=== PATIENT | female | born 1980 | race Caucasian/White ===

== ENCOUNTER 2019-04-09 11:10 | Emergency (ER) | payer OTHER ==
--- NOTE | 2019-04-09 11:54 | EDM.PDOC ---
ED HPI GENERAL MEDICAL PROBLEM - General Chief Complaint: Fever Stated Complaint: NECK PAIN, HEADACHE, FEVERS Time Seen by Provider: 04/09/19 11:42 Source of Information: Reports: Patient History Limitations: Reports: No Limitations - History of Present Illness INITIAL COMMENTS - FREE TEXT/NARRATIVE: Onset: gradual Sx: "just doesn't feel right" OTC: tylenol On Cefdinir for chronic sinus itis; left OM Has chronic diarrhea States she is otherwise healthy. 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: , Spontaneous Psychiatric History: Reports: Anxiety, Depression - Infectious Disease History Infectious Disease History: Reports: Chicken Pox Social & Family History - Tobacco Use Smoking Status *Q: Never Smoker Second Hand Smoke Exposure: No - Caffeine Use Caffeine Use: Reports: Soda - Alcohol Use Days Per Week of Alcohol Use: 0 - Recreational Drug Use Recreational Drug Use: No ED ROS GENERAL - Review of Systems Review Of Systems: See Below Constitutional: Reports: Fever, Chills, Weakness, Night Sweats HEENT: Reports: Ear Pain Respiratory: Reports: No Symptoms Cardiovascular: Reports: No Symptoms GI/Abdominal: Reports: No Symptoms : Reports: No Symptoms Musculoskeletal: Reports: No Symptoms Skin: Reports: No Symptoms Neurological: Reports: No Symptoms Psychiatric: Reports: No Symptoms ED EXAM, GENERAL - Physical Exam Exam: See Below Exam Limited By: No Limitations General Appearance: Alert, WD/WN, No Apparent Distress Eye Exam: Bilateral Eye: EOMI, PERRL Ear Exam: Bilateral Ear: Auricle Normal, Canal Normal, TM normal Nose: Normal Inspection Throat/Mouth: Normal Inspection, Normal Lips, Normal Teeth, Normal Gums, Normal Oropharynx, Normal Voice, No Airway Compromise Head: Atraumatic, Normocephalic Neck: Normal Inspection, Supple, Full Range of Motion Respiratory/Chest: No Respiratory Distress, Lungs Clear, Normal Breath Sounds Cardiovascular: Regular Rate, Rhythm GI/Abdominal: Normal Bowel Sounds, Soft, Non-Tender Back Exam: Full Range of Motion Extremities: Normal Inspection, Normal Range of Motion, Non-Tender Neurological: Alert, Oriented, CN II-XII Intact Psychiatric: Normal Affect, Normal Mood Skin Exam: Warm, Dry, Intact, Normal Color, No Rash Course - Vital Signs Last Recorded V/S: Last Vital Signs Temp 97.4 F 04/09/19 11:31 Pulse 102 H 04/09/19 11:31 Resp 18 04/09/19 11:31 BP 150/97 H 04/09/19 11:31 Pulse Ox 97 04/09/19 11:31 - Orders/Labs/Meds Orders: Active Orders 24 hr Category Date Time Status Peripheral IV Care [RC] . DIRECTED Care 04/09/19 12:57 Active Peripheral IV Insertion Adult [OM.PC] Stat Oth 04/09/19 12:57 Ordered Labs: Laboratory Tests 04/09/19 04/09/19 04/09/19 Range/Units 11:50 12:01 12:01 WBC 5.6 (4.5-11.0) K/uL RBC 4.98 (3.30-5.50) M/uL Hgb 13.2 (12.0-15.0) g/dL Hct 40.1 (36.0-48.0) % MCV 81 (80-98) fL MCH 27 (27-31) pg MCHC 33 (32-36) % Plt Count 244 (150-400) K/uL Neut % (Auto) 64 (36-66) % Lymph % (Auto) 22 L (24-44) % [place] % (Auto) 12 H (2-6) % Eos % (Auto) 3 (2-4) % Baso % (Auto) 0 (0-1) % Sodium 137 L (140-148) mmol/L Potassium 4.1 (3.6-5.2) mmol/L Chloride 103 (100-108) mmol/L Carbon Dioxide 25 (21-32) mmol/L Anion Gap 13.1 (5.0-14.0) mmol/L BUN 7 (7-18) mg/dL Creatinine 0.9 (0.6-1.0) mg/dL Est Cr Clr Drug Dosing 70.11 mL/min Estimated GFR (MDRD) > 60 (>60) Glucose 108 H (74-106) mg/dL Calcium 8.6 (8.5-10.1) mg/dL Total Bilirubin 0.4 (0.2-1.0) mg/dL AST 28 (15-37) U/L ALT 55 (12-78) U/L Alkaline Phosphatase 93 (46-116) U/L Total Protein 7.2 (6.4-8.2) g/dL Albumin 3.0 L (3.4-5.0) g/dL Globulin 4.2 H (2.3-3.5) g/dL Albumin/Globulin Ratio 0.7 L (1.2-2.2) Urine Color Yellow Urine Appearance Slightly cloudy Urine pH 5.0 (4.5-8.0) Ur Specific [place] 1.020 (1.008-1.030) Urine Protein Negative (NEGATIVE) mg/dL Urine Glucose (UA) Normal (NEGATIVE) mg/dL Urine Ketones Negative (NEGATIVE) mg/dL Urine Occult Blood Moderate (NEGATIVE) Urine Nitrite Negative (NEGATIVE) Urine Bilirubin Negative (NEGATIVE) Urine Urobilinogen Normal (NORMAL) mg/dL Ur Leukocyte Esterase Negative (NEGATIVE) Urine RBC 5-10 H (0-5) Urine WBC Not seen (0-5) Ur Epithelial Cells Moderate Amorphous Sediment Few Urine Bacteria Not seen Urine Mucus Rare Urine HCG, Qual 04/09/19 Range/Units 12:26 WBC (4.5-11.0) K/uL RBC (3.30-5.50) M/uL Hgb (12.0-15.0) g/dL Hct (36.0-48.0) % MCV (80-98) fL MCH (27-31) pg MCHC (32-36) % Plt Count (150-400) K/uL Neut % (Auto) (36-66) % Lymph % (Auto) (24-44) % [place] % (Auto) (2-6) % Eos % (Auto) (2-4) % Baso % (Auto) (0-1) % Sodium (140-148) mmol/L Potassium (3.6-5.2) mmol/L Chloride (100-108) mmol/L Carbon Dioxide (21-32) mmol/L Anion Gap (5.0-14.0) mmol/L BUN (7-18) mg/dL Creatinine (0.6-1.0) mg/dL Est Cr Clr Drug Dosing mL/min Estimated GFR (MDRD) (>60) Glucose (74-106) mg/dL Calcium (8.5-10.1) mg/dL Total Bilirubin (0.2-1.0) mg/dL AST (15-37) U/L ALT (12-78) U/L Alkaline Phosphatase (46-116) U/L Total Protein (6.4-8.2) g/dL Albumin (3.4-5.0) g/dL Globulin (2.3-3.5) g/dL Albumin/Globulin Ratio (1.2-2.2) Urine Color Urine Appearance Urine pH (4.5-8.0) Ur Specific [place] (1.008-1.030) Urine Protein (NEGATIVE) mg/dL Urine Glucose (UA) (NEGATIVE) mg/dL Urine Ketones (NEGATIVE) mg/dL Urine Occult Blood (NEGATIVE) Urine Nitrite (NEGATIVE) Urine Bilirubin (NEGATIVE) Urine Urobilinogen (NORMAL) mg/dL Ur Leukocyte Esterase (NEGATIVE) Urine RBC (0-5) Urine WBC (0-5) Ur Epithelial Cells Amorphous Sediment Urine Bacteria Urine Mucus Urine HCG, Qual Negative Meds: Medications Discontinued Medications Generic Name Dose Route Start Last Admin Trade Name Freq PRN Reason Stop Dose Admin Sodium Chloride 1,000 mls @ 1,000 mls/hr 04/09/19 13:00 04/09/19 13:07 Normal Saline IV 1,000 mls/hr ASDIRECTED ESME Administration Morphine Sulfate 4 mg 04/09/19 12:58 04/09/19 13:11 Morphine IVPUSH 04/09/19 12:59 4 mg ONETIME ONE Administration Sodium Chloride 10 ml 04/09/19 12:57 Saline Flush FLUSH ASDIRECTED PRN Keep Vein Open - Re-Assessments/Exams Free Text/Narrative Re-Assessment/Exam: 04/09/19 12:46 awaiting urine /ua; sodium is a little low, otherwise labs are stable. Reviewed with patient. 04/09/19 13:00 she states she has neck pain and headache; along with fever; she has been out in the sun quite a bit; Will give her NS and some pain medicine. Will continue to evaluate. Free Text/Narrative Re-Assessment/Exam: 04/09/19 14:04 1 L of NS given; Morphine for pain; Home, rest, hydrate. Tylenol/motrin for headache. Follow up with primary care if not improving. If symptoms worsen, return to ER for further evaluation. Departure - Departure Time of Disposition: 13:00 Disposition: Home, Self-Care 01 Condition: Good Clinical Impression: Fever Qualifiers: Fever type: unspecified Qualified Code(s): R50.9 - Fever, unspecified - Discharge Information *PRESCRIPTION DRUG MONITORING PROGRAM REVIEWED*: Not Applicable *COPY OF PRESCRIPTION DRUG MONITORING REPORT IN PATIENT LIZETTE: Not Applicable Instructions: Fever, Adult Referrals: PCP,None [Primary Care Provider] - Forms: ED Department Discharge Additional Instructions: Home, rest, hydrate. Tylenol/motrin for headache. Follow up with primary care if not improving. If symptoms worsen, return to ER for further evaluation. - Problem List & Annotations (1) Fever SNOMED Code(s): 514575804 Code(s): R50.9 - FEVER, UNSPECIFIED Status: Acute Priority: Low Qualifiers: Fever type: unspecified Qualified Code(s): R50.9 - Fever, unspecified - Problem List Review Problem List Initiated/Reviewed/Updated: Yes - My Orders Last 24 Hours: My Active Orders 04/09/19 12:57 Peripheral IV Care [RC] . DIRECTED Peripheral IV Insertion Adult [OM.PC] Stat - Assessment/Plan Last 24 Hours: My Active Orders 04/09/19 12:57 Peripheral IV Care [RC] . DIRECTED Peripheral IV Insertion Adult [OM.PC] Stat
[2019-04-09] MEDS ORDERED: Sodium Chloride 0.9% 10 ML Syringe FLUSH PRN (12:57)
[2019-04-09] MEDS ORDERED: Morphine 4 MG/ML Syringe IVPUSH ONE (12:58)
[2019-04-09] MEDS ORDERED: Sodium Chloride 0.9% 1,000 ML IV SCH (13:00)
== END 2019-04-09 14:15 | disposition home or self-care (01) ==
LOC: JP.ED 11:10
DX: R50.9 Fever, unspecified (principal); M54.2 Cervicalgia; R51 Headache; F41.9 Anxiety disorder, unspecified; F32.9 Major depressive disorder, single episode, unspecified; Z79.899 Other long term (current) drug therapy
CPT/HCPCS: 36415; 80053; 81001; 81025; 85025; 96361; 96374; 99283; J2270; J7030

== ENCOUNTER 2019-04-11 09:40 | Emergency (ER) | payer OTHER ==
[2019-04-11] MEDS ORDERED: Cyclobenzaprine 10 MG Tab PO ONE (10:09)
[2019-04-11] MEDS ORDERED: Ketorolac 30 MG/ML SDV IVPUSH ONE (10:09)
--- NOTE | 2019-04-11 10:13 | EDM.PDOC ---
ED HPI GENERAL MEDICAL PROBLEM - General Chief Complaint: Headache Stated Complaint: NECK PAIN, FEVER HEADACHE WAS HERE MON Time Seen by Provider: 04/11/19 09:59 Source of Information: Reports: Patient, Family, Old Records, RN Notes Reviewed History Limitations: Reports: No Limitations - History of Present Illness INITIAL COMMENTS - FREE TEXT/NARRATIVE: 38-year-old female presents emergency department today complaint of headache and fever as well as neck pain, she states she's had the neck pain for about a week went in combination with the headache the fever started 5 days prior was in the emergency department on Tuesday for evaluation at that time lab work was fairly unremarkable had some improvement with fluids and treatment elected to do watchful waiting at that time. 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 She is up here visiting. 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: , Spontaneous Psychiatric History: Reports: Anxiety, Depression - Infectious Disease History Infectious Disease History: Reports: Chicken Pox Social & Family History - Tobacco Use Smoking Status *Q: Never Smoker - Caffeine Use Caffeine Use: Reports: Soda - Recreational Drug Use Recreational Drug Use: No ED ROS GENERAL - Review of Systems Review Of Systems: See Below Constitutional: Reports: Fever, Chills, Other (Breanna's) HEENT: Reports: Sinus Problem Respiratory: Reports: No Symptoms Cardiovascular: Reports: No Symptoms GI/Abdominal: Reports: No Symptoms Musculoskeletal: Reports: Neck Pain Skin: Reports: No Symptoms Neurological: Reports: Headache - Physical Exam Exam: See Below Exam Limited By: No Limitations General Appearance: Alert, Mild Distress Eye Exam: Bilateral Eye: EOMI, Normal Fundi, Normal Inspection, PERRL Throat/Mouth: No Airway Compromise Head Exam: Atraumatic, Normocephalic Neck: Normal Inspection, Supple, Limited Range of Motion, Tender Lateral Respiratory/Chest: No Respiratory Distress, Lungs Clear, Normal Breath Sounds, No Accessory Muscle Use, Chest Non-Tender Cardiovascular: Regular Rate, Rhythm, No Murmur GI/Abdominal: Soft, Non-Tender Extremities: Normal Inspection, Non-Tender Course - Vital Signs Last Recorded V/S: Last Vital Signs Temp 95.8 F 04/11/19 11:11 Pulse 86 04/11/19 12:15 Resp 16 04/11/19 11:11 BP 96/68 04/11/19 12:15 Pulse Ox 94 L 04/11/19 12:15 - Orders/Labs/Meds Orders: Active Orders 24 hr Category Date Time Status Vital Signs [RC] Q1H Care 04/11/19 10:07 Active CRYPTOCOCCUS ANTIBODIES, QUANT Routine Lab 04/11/19 12:53 Received CULTURE BLOOD [BC] Urgent Lab 04/11/19 10:10 Received CULTURE BLOOD [BC] Urgent Lab 04/11/19 10:15 Received CULTURE CSF + SMEAR [RM] Routine Lab 04/11/19 12:53 Results Sodium Chloride 0.9% [Normal Saline] 1,000 ml Med 04/11/19 11:00 Active IV ASDIRECTED Blood Culture x2 Reflex Set [OM.PC] Urgent Oth 04/11/19 10:07 Ordered Medication Orders Sodium Chloride (Normal Saline) 1,000 mls @ 500 mls/hr IV ASDIRECTED ESME Last Admin: 04/11/19 11:11 Dose: 500 mls/hr Labs: Laboratory Tests 04/11/19 04/11/19 04/11/19 Range/Units 10:10 10:10 10:10 WBC 10.2 (4.5-11.0) K/uL RBC 4.65 (3.30-5.50) M/uL Hgb 12.6 (12.0-15.0) g/dL Hct 37.4 (36.0-48.0) % MCV 80 (80-98) fL MCH 27 (27-31) pg MCHC 34 (32-36) % Plt Count 203 (150-400) K/uL Neut % (Auto) 96 H (36-66) % Lymph % (Auto) 1 L (24-44) % [place] % (Auto) 2 (2-6) % Eos % (Auto) 1 L (2-4) % Baso % (Auto) 0 (0-1) % Sodium 138 L (140-148) mmol/L Potassium 2.8 L* (3.6-5.2) mmol/L Chloride 105 (100-108) mmol/L Carbon Dioxide 20 L (21-32) mmol/L Anion Gap 15.8 H (5.0-14.0) mmol/L BUN 12 D (7-18) mg/dL Creatinine 1.0 (0.6-1.0) mg/dL Est Cr Clr Drug Dosing 63.10 mL/min Estimated GFR (MDRD) > 60 (>60) Glucose 126 H (74-106) mg/dL Lactic Acid 1.7 (0.4-2.0) mmol/L Calcium 8.2 L (8.5-10.1) mg/dL Total Bilirubin 0.5 (0.2-1.0) mg/dL AST 22 (15-37) U/L ALT 46 (12-78) U/L Alkaline Phosphatase 90 (46-116) U/L C-Reactive Protein 3.89 H (0.0-0.3) mg/dL Total Protein 6.7 (6.4-8.2) g/dL Albumin 2.9 L (3.4-5.0) g/dL Globulin 3.8 H (2.3-3.5) g/dL Albumin/Globulin Ratio 0.8 L (1.2-2.2) Procalcitonin ng/mL CSF Tube Number CSF Volume mls CSF Appearance (CLEAR) CSF Color (COLORLESS) CSF WBC (0-5) /ul CSF RBC (0-0) /ul CSF Mononuclear Cells (54-100) % CSF Polymorphonuclear (0-7) % CSF Glucose (40-70) mg/dL CSF Total Protein (15-45) mg/dL 04/11/19 04/11/19 04/11/19 Range/Units 10:10 12:53 12:53 WBC (4.5-11.0) K/uL RBC (3.30-5.50) M/uL Hgb (12.0-15.0) g/dL Hct (36.0-48.0) % MCV (80-98) fL MCH (27-31) pg MCHC (32-36) % Plt Count (150-400) K/uL Neut % (Auto) (36-66) % Lymph % (Auto) (24-44) % [place] % (Auto) (2-6) % Eos % (Auto) (2-4) % Baso % (Auto) (0-1) % Sodium (140-148) mmol/L Potassium (3.6-5.2) mmol/L Chloride (100-108) mmol/L Carbon Dioxide (21-32) mmol/L Anion Gap (5.0-14.0) mmol/L BUN (7-18) mg/dL Creatinine (0.6-1.0) mg/dL Est Cr Clr Drug Dosing mL/min Estimated GFR (MDRD) (>60) Glucose (74-106) mg/dL Lactic Acid (0.4-2.0) mmol/L Calcium (8.5-10.1) mg/dL Total Bilirubin (0.2-1.0) mg/dL AST (15-37) U/L ALT (12-78) U/L Alkaline Phosphatase (46-116) U/L C-Reactive Protein (0.0-0.3) mg/dL Total Protein (6.4-8.2) g/dL Albumin (3.4-5.0) g/dL Globulin (2.3-3.5) g/dL Albumin/Globulin Ratio (1.2-2.2) Procalcitonin 5.97 H* ng/mL CSF Tube Number 3 CSF Volume 1 mls CSF Appearance Clear (CLEAR) CSF Color Colorless (COLORLESS) CSF WBC 4 (0-5) /ul CSF RBC 248 H (0-0) /ul CSF Mononuclear Cells 75 (54-100) % CSF Polymorphonuclear 25 H (0-7) % CSF Glucose 69 (40-70) mg/dL CSF Total Protein (15-45) mg/dL 04/11/19 Range/Units 13:06 WBC (4.5-11.0) K/uL RBC (3.30-5.50) M/uL Hgb (12.0-15.0) g/dL Hct (36.0-48.0) % MCV (80-98) fL MCH (27-31) pg MCHC (32-36) % Plt Count (150-400) K/uL Neut % (Auto) (36-66) % Lymph % (Auto) (24-44) % [place] % (Auto) (2-6) % Eos % (Auto) (2-4) % Baso % (Auto) (0-1) % Sodium (140-148) mmol/L Potassium (3.6-5.2) mmol/L Chloride (100-108) mmol/L Carbon Dioxide (21-32) mmol/L Anion Gap (5.0-14.0) mmol/L BUN (7-18) mg/dL Creatinine (0.6-1.0) mg/dL Est Cr Clr Drug Dosing mL/min Estimated GFR (MDRD) (>60) Glucose (74-106) mg/dL Lactic Acid (0.4-2.0) mmol/L Calcium (8.5-10.1) mg/dL Total Bilirubin (0.2-1.0) mg/dL AST (15-37) U/L ALT (12-78) U/L Alkaline Phosphatase (46-116) U/L C-Reactive Protein (0.0-0.3) mg/dL Total Protein (6.4-8.2) g/dL Albumin (3.4-5.0) g/dL Globulin (2.3-3.5) g/dL Albumin/Globulin Ratio (1.2-2.2) Procalcitonin ng/mL CSF Tube Number CSF Volume mls CSF Appearance (CLEAR) CSF Color (COLORLESS) CSF WBC (0-5) /ul CSF RBC (0-0) /ul CSF Mononuclear Cells (54-100) % CSF Polymorphonuclear (0-7) % CSF Glucose (40-70) mg/dL CSF Total Protein 22.7 (15-45) mg/dL Meds: Medications Generic Name Dose Route Start Last Admin Trade Name Freq PRN Reason Stop Dose Admin Sodium Chloride 1,000 mls @ 500 mls/hr 04/11/19 11:00 04/11/19 11:11 Normal Saline IV 500 mls/hr ASDIRECTED ESME Administration Discontinued Medications Generic Name Dose Route Start Last Admin Trade Name Freq PRN Reason Stop Dose Admin Cyclobenzaprine HCl 10 mg 04/11/19 10:09 04/11/19 10:19 Flexeril PO 04/11/19 10:10 10 mg ONETIME ONE Administration Fentanyl 100 mcg 04/11/19 11:29 04/11/19 11:40 Sublimaze IM 04/11/19 11:30 100 mcg ONETIME ONE Administration Hydromorphone HCl 1 mg 04/11/19 14:40 Dilaudid IVPUSH 04/11/19 14:41 ONETIME ONE Potassium Chloride 20 meq/ 112 mls @ 56 mls/hr 04/11/19 11:00 04/11/19 11:11 Lidocaine HCl 2 ml/ Sodium IV 04/11/19 12:59 56 mls/hr Chloride ONETIME ONE Administration Ketorolac Tromethamine 30 mg 04/11/19 10:09 04/11/19 10:19 Toradol IVPUSH 04/11/19 10:10 30 mg ONETIME ONE Administration Potassium Chloride 40 meq 04/11/19 10:51 04/11/19 11:11 Klor-Con M20 PO 04/11/19 10:52 40 meq ONETIME ONE Administration Departure - Departure Time of Disposition: 14:50 Disposition: Home, Self-Care 01 Condition: Fair Clinical Impression: Head ache Qualifiers: Headache type: unspecified Headache chronicity pattern: acute headache - Discharge Information Referrals: PCP,None [Primary Care Provider] - Forms: ED Department Discharge Additional Instructions: Continue to use your ibuprofen or Tylenol for baseline pain control use the hydrocodone for breakthrough pain, please follow-up with your primary care provider upon return call return to the emergency department worsening of symptoms. - My Orders Last 24 Hours: My Active Orders 04/11/19 10:07 Vital Signs [RC] Q1H Blood Culture x2 Reflex Set [OM.PC] Urgent 04/11/19 10:10 CULTURE BLOOD [BC] Urgent 04/11/19 10:15 CULTURE BLOOD [BC] Urgent 04/11/19 11:00 Sodium Chloride 0.9% [Normal Saline] 1,000 ml IV ASDIRECTED 04/11/19 12:53 CRYPTOCOCCUS ANTIBODIES, QUANT Routine CULTURE CSF + SMEAR [] Routine - Assessment/Plan Last 24 Hours: My Active Orders 04/11/19 10:07 Vital Signs [RC] Q1H Blood Culture x2 Reflex Set [OM.PC] Urgent 04/11/19 10:10 CULTURE BLOOD [BC] Urgent 04/11/19 10:15 CULTURE BLOOD [BC] Urgent 04/11/19 11:00 Sodium Chloride 0.9% [Normal Saline] 1,000 ml IV ASDIRECTED 04/11/19 12:53 CRYPTOCOCCUS ANTIBODIES, QUANT Routine CULTURE CSF + SMEAR [RM] Routine Plan: Assessment Acuity = acute Site and laterality = headache, neck pain and fever Etiology = unclear etiology Manifestations = none Location of injury = Home Lab values = CBC unremarkable potassium low at 2.8 consistent hypokalemia lactic acid normal at 1.7 and CRP slightly elevated 3.89 pro calcitonin is also elevated of unclear significance, CT scan of the head was negative for any acute process cerebral spinal fluid shows normal glucose normal protein however the tube labeled #3 has 250 rbc's and it and the tube labeled number to only has approximately 25 RBCs suspicious that this is a miss labeled tube for rbc Plan Did discuss with her options including hospitalization which would include transfer, she declined therefore hydrocodone 5/325 one tab by mouth 3 times a day when necessary total #10 provided for pain control she is going to return home today 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
[2019-04-11] MEDS ORDERED: Potassium Chloride 20 MEQ Tab.ER PO ONE (10:51)
[2019-04-11] MEDS ORDERED: Potassium Chloride 20 MEQ in Premix Bag 1 BAG IV ONE (10:51)
[2019-04-11] MEDS ORDERED: Potassium Chloride 20 MEQ, Lidocaine 1% 2 ML in Sodium Chloride 0.9% 100 ML IV ONE (11:00)
[2019-04-11] MEDS ORDERED: Sodium Chloride 0.9% 1,000 ML IV SCH (11:00)
--- NOTE | 2019-04-11 11:12 | CRLCT ---
INDICATION: 38-year-old female. Fever. Headaches. TECHNIQUE: CT images from foramen magnum to vertex obtained contrast. Findings : The ventricles normal in size and shape. No evidence of acute intracranial hemorrhage. No subdural fluid collections. No mass effect. No areas of abnormal density. The bony calvarium is unremarkable. Included paranasal sinuses are clear. IMPRESSION: Negative CT brain without contrast. Please note that all CT scans at this facility use dose modulation, iterative reconstruction, and/or weight-based dosing when appropriate to reduce radiation dose to as low as reasonably achievable. Dictated by Manuel Mata MD @ Apr 11 2019 11:09AM Signed by Dr. Manuel Mata @ Apr 11 2019 11:11AM
[2019-04-11] MEDS ORDERED: fentaNYL 100 MCG/2 ML SDV IM ONE ×2 (11:29→14:16)
[2019-04-11] MEDS ORDERED: HYDROmorphone 1 MG/ML Syringe IVPUSH ONE (14:40)
--- NOTE | 2019-04-11 15:32 | ANES ---
DATE OF SERVICE: 04/11/2019 INDICATION: I was called by Dr. Giron in the ER regarding the patient who has a headache with fever and neck pain. He was wanting me to come over and do a lumbar puncture on the patient. I was at the bedside shortly. A brief history and physical was reviewed with the patient. Also, the risks and benefits related to the lumbar puncture including spinal headache and a small risk for infection was reviewed with the patient and father. The patient agrees and understands the risks and benefits and wishes to proceed with the lumbar puncture today. TECHNIQUE: The patient was already in the right lateral decubitus position, so I just left her in that position. I did have her curl up into more bowl to open up her lumbar space. Betadine was used to prep her lower back lumbar region. Sterile drape was placed. 1% lidocaine skin wheal and deep was done. I first inserted a 25-gauge [place] without any success and unable to pass that, so I switched to a 22-gauge Hyatt needle and was able to positively get spinal fluid. Her initial pressure was 18. The fluid was very clear upon insertion. Her spinal fluid was very clear. No blood was noted. No significant cloudiness was noted either. I then proceeded to get 4 vials for CSF sampling. ER nurse was in the room to . The patient tolerated the procedure without difficulty. After the CSF samples were done, sterile drape was taken out. Betadine was cleaned off her back and a Band-Aid was applied to the puncture site for hemostasis. Like I said, the patient tolerated the procedure without difficulty please refer to the nurse's notes for vital signs. I did talk to Dr. Giron about my observation and he will continue care of the patient. Srini Anthony CRNA /[id number]
== END 2019-04-11 15:08 | disposition home or self-care (01) ==
LOC: JP.ED 09:40
DX: R51 Headache (principal); R50.9 Fever, unspecified; M54.2 Cervicalgia; F41.9 Anxiety disorder, unspecified; F32.9 Major depressive disorder, single episode, unspecified; Z79.899 Other long term (current) drug therapy
CPT/HCPCS: 36415; 62270; 70450; 80053; 82945; 83605; 84145; 84157; 85025; 86140; 86641; 87040; 87070; 87205; 89050; 96365; 96366; 96372; 96375; 99283; A9270; J1170; J1885; J2001; J3010; J3480; J7030